=== PATIENT | male | born 1995 | race Caucasian/White ===

== ENCOUNTER 2019-10-03 18:25 | Emergency (ER) | payer OTHER ==
[~2019-10-03] VITALS: Ht 165.1 cm; Wt 81.7 kg
[2019-10-03 19:54] LABS: ALCOHOL 17 mg/dL (<10); SALICYLATE 3.2 mg/dL (2.8-20.0)
[2019-10-03 19:56] LABS: ACETAMINOPHEN < 2 ug/mL (10-30)
[2019-10-03 20:15] LABS: ANION GAP 14 mmol/L (7-16); BUN 9 mg/dL (7-18); CHLORIDE 103 mmol/L (98-107); CO2 23 mmol/L (21-32); GLUCOSE 97 mg/dL (70-99); POTASSIUM 3.6 mmol/L (3.5-5.1); SODIUM 140 mmol/L (136-145)
[2019-10-03 20:19] LABS: ALBUMIN 4.1 g/dL (3.4-5.0); ALKALINE PHOSPHATASE 70 U/L (46-116); AMMONIA < 10 umol/L (11-32); LIPASE 62 U/L (73-393); SGOT 20 U/L (15-37); SGPT 33 U/L (30-65); TOTAL BILIRUBIN 0.4 mg/dL (<0.1-1.0); TOTAL PROTEIN 7.6 g/dL (6.4-8.2)
[2019-10-03 20:44] LABS: URINE BILIRUBIN NEGATIVE (Negative); URINE BLOOD 1+ (Negative); URINE CLARITY CLEAR; URINE COLOR YELLOW; URINE GLUCOSE-RANDOM NEGATIVE (Negative); URINE KETONES NEGATIVE (Negative); URINE LEUKOCYTES-REFLEX NEGATIVE (Negative); URINE NITRITE-REFLEX NEGATIVE (Negative); URINE PROTEIN 1+ (Negative); URINE SPECIFIC GRAVITY >= 1.030 (1.005-1.030); URINE UROBILINOGEN 0.2 E.U./dl (0.2-1.0)
[2019-10-03 20:53] LABS: AMP/METHAMP Negative (Negative); BARBITURATES Negative (Negative); BENZODIAZEPINES Negative (Negative); COCAINE Negative (Negative); METHADONE Negative (Negative); OPIATES Negative (Negative); PCP Negative (Negative); THC POSITIVE (Negative)
[2019-10-03 20:59] LABS: BACTERIA-REFLEX 1-9 Few /HPF (None Seen); CASTS None Seen /LPF (None Seen); CRYSTALS None Seen /LPF (None Seen); SQUAMOUS 0-3 Few /LPF (0-3); URINE RBC 0-2 Rare /HPF (0-2); URINE WBC-REFLEX 0-5 Rare /HPF (0-5)
[2019-10-03 21:10] LABS: HEMATOCRIT 47.1 % (42.0-52.0); HEMOGLOBIN 15.9 gm/dL (14.0-18.0); MCH 30.1 pg (26.0-34.0); MCHC 33.8 g/dL (28.0-37.0); MCV 89.1 fL (80.0-100.0); MPV 7.2 fl. (7.2-11.1); NUCLEATED RBCS 0 /100WBC; PLATELET COUNT* 273 thou/uL (150-400); RBC 5.29 mil/uL (4.50-6.00); RDW-CV 13.9 % (10.5-14.5); WBC 16.3 thou/uL (4.0-11.0)
[2019-10-03 21:50] LABS: ABSOLUTE LYMPHOCYTES 1.1 thou/uL (0.8-5.3); ABSOLUTE MONOCYTES 0.3 thou/uL (0.0-1.2); ABSOLUTE NEUTROPHILS 14.8 thou/uL (1.6-8.1); PLATELET ESTIMATE ADEQUATE
[2019-10-03 21:56] VITALS: BP 115/55
--- NOTE | 2019-10-04 09:53 | EKG ---
[place] [address] ELECTROCARDIOGRAM REPORT Name: STERLING RUBIO Room: [facility]#: [id number] Admission: 10/03/19 Attend Phys: Discharge: 10/03/19 Date of : 89 Date of Service: 10/03/191927 Report #: [id number] THIS REPORT FOR: //name// [facility] ED Test Date: 2019-10-03 Test Time: 19:28:49 Pat Name: STERLING RUBIO Department: Room: Gender: Set Up Worker: [place] : 1995 Requested By: Gemini Mann Order Number: [id number] MD: Gonzalo Mckenna Measurements Intervals [place] Rate: 123 P: 78 AL: 118 QRS: 64 QRSD: 78 T: -60 QT: 306 QTc: 438 Interpretive Statements Sinus tachycardia Nonspecific T abnormalities, inferior leads No previous ECG available for comparison Electronically Signed On 10-04-2019 9:52:45 CDT by Gonzalo Mckenna [email or web address] <ELECTRONICALLY SIGNED> By: Gonzalo Mckenna MD, [facility] 10/04/19 0952 27 Gonzalo Mckenna MD, [facility] /EPI
== END 2019-10-03 21:56 | disposition home or self-care (01) ==
LOC: M.ERS 18:25
PROVIDERS: Nurse Practitioner Family
DX: F12.90 Cannabis use, unspecified, uncomplicated (principal); R41.82 Altered mental status, unspecified